=== PATIENT | male | born 1955 | race Caucasian/White ===

== ENCOUNTER 2024-09-30 17:32 | Outpatient (CLI) | payer MEDICARE, SELFPAY ==
[2024-09-30 16:44] LABS: Basophils # 0.1 K/mm3 (0-0.2); Basophils % 0.8 % (0.1-2.0); Eosinophils # 0.2 K/mm3 (0.0-0.4); Eosinophils % 1.9 % (0.1-12.0); Hematocrit 54.2 % (42.0-52.0); Lymphocytes # 3.3 K/mm3 (0.7-4.5); Lymphocytes % 26.3 % (10-50); Mean Corpuscular HGB Conc 33.1 g/dL (31.8-35.4); Mean Corpuscular Hemoglobin 30.3 pg (27.0-31.2); Mean Corpuscular Volume 91.4 fl (80-94); Mean Platelet Volume 9.7 fl (7.4-10.4); Monocytes # 0.9 K/mm3 (0.1-1.0); Monocytes % 6.8 % (1.7-9.3); Neutrophils # 8.1 K/mm3 (1.8-7.8); Neutrophils % 64.1 % (37.0-80.0); Platelet Count 175 K/mm3 (142-424); Red Blood Count 5.93 M/mm3 (4.60-6.20); Red Cell Distribution Width 13.9 % (11.5-17.5); White Blood Count 12.6 K/mm3 (4.8-10.8)
[2024-09-30 17:03] LABS: Albumin Level 4.9 g/dl (3.5-5.0); Chloride 102 mmol/L (98-107); Potassium 4.3 mmoL/L (3.5-5.1); Sodium 137 mmol/L (136-145)
[2024-09-30 17:05] LABS: Alanine Aminotransferase 36 U/L (12-78); Alkaline Phosphatase 87 U/L (38-126); Aspartate Amino Transferase 39 U/L (17-59); Bilirubin,Total 1.1 mg/dl (0.2-1.3); Blood Urea Nitrogen 14 mg/dl (9-20); Estimated Glomerular Filt Rate 84 ml/min (>60); GFR (African American) 102 ML/MIN (>60)
[2024-09-30 17:06] LABS: Albumin/Globulin Ratio 1.8 (1.1-1.8); Anion Gap 17.3 mEq/L (5-15); Calcium 9.5 mg/dl (8.4-10.2); Carbon Dioxide 22 mmol/L (22.0-30.0); Chol/HDL Ratio 7.7 (1-3.5); Cholesterol 246 mg/dl (140-200); Globulin 2.8 g/dL (1.3-3.2); Glucose 80 mg/dl (74-100); HDL Cholesterol 32 mg/dl (40-60); Iron 76 ug/dL (49-181); Total Protein,Serum 7.7 g/dl (6.3-8.2)
[2024-09-30 17:08] LABS: Triglycerides 434 mg/dl (30-150)
[2024-09-30 17:16] LABS: Total Iron Binding Capacity 272 ug/dL (261-462)
[2024-09-30 17:17] LABS: Direct LDL Cholesterol 117.98 mg/dL (100-129)
[2024-09-30 17:36] LABS: Thyroid Stimulating Hormone 1.59 uIU/mL (0.465-4.68)
[2024-09-30 18:15] LABS: Prostate Specific Ag Screen 1.1 ng/ml (0.0-4.0)
== END 2024-09-30 23:59 | disposition home or self-care (01) ==
LOC: LAB.DROPOF 17:33
PROVIDERS: PCP Family Medicine; Visit Provider Family Medicine
DX: I10 Essential (primary) hypertension (principal); G47.00 Insomnia, unspecified; Z12.5 Encounter for screening for malignant neoplasm of prostate; D64.9 Anemia, unspecified
CPT/HCPCS: 80053; 80061; 83540; 83550; 83735; 84443; 85025; G0103

== ENCOUNTER 2025-06-08 13:03 | Outpatient (CLI) | payer MEDICARE, SELFPAY ==
[2025-06-08 17:02] LABS: Hematocrit 50.3 % (42.0-52.0); Hemoglobin 16.3 g/dL (14.1-18.0); Immature Granulocytes % 0.4 %; Mean Corpuscular HGB Conc 32.4 g/dL (31.8-35.4); Mean Corpuscular Hemoglobin 29.3 pg (27.0-31.2); Mean Corpuscular Volume 90.3 fl (80-94); Nucleated Red Blood Cells % 0 %; Platelet Count 152 K/mm3 (142-424); Red Blood Count 5.57 M/mm3 (4.60-6.20); Red Cell Distribution Width-SD 43.5 fL; White Blood Count 9.5 K/mm3 (4.8-10.8)
[2025-06-08 17:29] LABS: Alanine Aminotransferase 48 U/L (12-78); Albumin Level 4.8 g/dl (3.5-5.0); Albumin/Globulin Ratio 2.0 (1.1-1.8); Anion Gap 17.8 mEq/L (5-15); Aspartate Amino Transferase 36 U/L (17-59); Bilirubin,Total 0.9 mg/dl (0.2-1.3); Blood Urea Nitrogen 14 mg/dl (9-20); Calcium 9.9 mg/dl (8.4-10.2); Carbon Dioxide 26 mmol/L (22.0-30.0); Chloride 99 mmol/L (98-107); Creatinine,Serum 0.80 mg/dl (0.66-1.25); Estimated Glomerular Filt Rate 96 ml/min (>60); GFR (African American) 116 ML/MIN (>60); Globulin 2.4 g/dL (1.3-3.2); Glucose 74 mg/dl (74-100); Potassium 4.8 mmoL/L (3.5-5.1); Sodium 138 mmol/L (136-145); Total Protein,Serum 7.2 g/dl (6.3-8.2); Triglycerides 355 mg/dl (30-150)
[2025-06-08 17:30] LABS: Alkaline Phosphatase 77 U/L (38-126); Cholesterol 229 mg/dl (140-200); HDL Cholesterol 29 mg/dl (40-60)
[2025-06-08 18:00] LABS: Thyroid Stimulating Hormone 1.79 uIU/mL (0.465-4.68)
[2025-06-08 19:48] LABS: Hepatitis C Ab Qual. W/ RFX NEGATIVE (Negative)
[2025-06-09 05:38] LABS: Hepatitis B Surface Antigen Negative (Negative)
== END 2025-06-08 23:59 | disposition home or self-care (01) ==
LOC: LAB.DROPOF 06-09 13:29
PROVIDERS: PCP Family Medicine; Visit Provider Family Medicine
DX: Z11.59 Encounter for screening for other viral diseases (principal); I10 Essential (primary) hypertension; Z11.4 Encounter for screening for human immunodeficiency virus [HIV]; E78.5 Hyperlipidemia, unspecified
CPT/HCPCS: 80053; 80061; 84443; 85025; 86803; 87340; 87389